=== PATIENT | male | born 1990 | race Native Hawaiian/Other Pacific Islander ===

== ENCOUNTER 2019-01-13 10:12 | Emergency (ER) | payer OTHER ==
[~2019-01-13] VITALS: Ht 188 cm; Wt 108.9 kg
[2019-01-13 10:54] LABS: PLATELET COUNT 207 K/uL (142-355)
[2019-01-13 11:48] VITALS: BP 131/72; TEMP 98
== END 2019-01-13 11:48 | disposition home or self-care (01) ==
LOC: ED 10:12
PROVIDERS: Emergency Medicine
DX: J06.9 Acute upper respiratory infection, unspecified (principal)
CPT/HCPCS: 36415; 80053; 85027; 87502; 87651; 99283

== ENCOUNTER 2019-02-20 16:46 | Emergency (ER) | payer OTHER ==
[~2019-02-20] VITALS: Ht 188 cm; Wt 108.9 kg
[2019-02-20 20:10] VITALS: BP 129/79; TEMP 97.7
== END 2019-02-20 20:07 | disposition home or self-care (01) ==
LOC: ED 16:46
DX: S39.012A Strain of muscle, fascia and tendon of lower back, initial encounter (principal); V49.50XA Passenger injured in collision with unspecified motor vehicles in traffic accident, initial encounter; Y92.410 Unspecified street and highway as the place of occurrence of the external cause
CPT/HCPCS: 96372; 99283; J1885